=== PATIENT | male | born 1980 | race Caucasian/White ===

== ENCOUNTER 2017-06-27 11:20 | Emergency (ER) | payer MEDICARE, OTHER, MEDICAID ==
[~2017-06-27] VITALS: Ht 188 cm; Wt 95.3 kg
[~2017-06-27 11:20] MED LIST: ACID1TAB21 PO; AMO875 PO; AMOX-559 PO; AMOX500T10 PO; ARI10 PO; AZIT500T47 PO; CEFD300C35 PO; CLIN40GE2 TP; CLOB10TA PO; CLOZ100 FT; CLOZ100 PO; DIVA500T97 PO; GAB800PT PO; GABA-551 PO; HYDR453.8 TP; HYOS0.37 PO; IMIP10TA17 PO; LEVE500 PO; LEVO-3 PO; LEVO88TA45 PO; LITHOBID PO; LORA-629 PO; MIR; MOM PO; OLAN20TA17 PO; OLAN20TA18 PO; OSE75 PO; OXCA300T42 PO; POLY17PO25 PO; PRED-1 PO; [UNRECOGNIZED DRUG - CODE] PO
--- NOTE | 2017-06-27 11:22 | ER Report ---
History and Physical Time Seen By MD: 11:22 HPI/ROS CHIEF COMPLAINT: Right leg pain HISTORY OF PRESENT ILLNESS: Patient is a 37-year-old male who is a history of developmental delay epilepsy and anxiety disorder who is brought to the emergency department for evaluation of atraumatic right leg pain. The symptoms as best I can understand began last evening. Glaze Wiper normally states the patient ambulates without difficulty but is now having significant discomfort and not bearing weight. No history of fever no new rashes. Again no history of traumatic injury. REVIEW OF SYSTEMS: Respiratory: No cough, no dyspnea. Cardiovascular: No chest pain, no palpitations. Gastrointestinal: No vomiting, no abdominal pain. Musculoskeletal: No back pain. Right upper leg pain Allergies: Coded Allergies: No Known Drug Allergies (Verified , 02/28/16) Home Meds Active Scripts Ibuprofen (IBUPROFEN) 600 Mg Tablet, 1 TAB PO Q8H for PAIN, #30 TAB 0 Refills Prov:TONIO MEJIA MD 06/27/17 Oxcarbazepine (OXCARBAZEPINE) 300 Mg Tablet, 450 MG PO DAILY@20, #45 TAB 1 Refill Prov:JULIO LANDIN MD 08/03/15 Oxcarbazepine (OXCARBAZEPINE) 300 Mg Tablet, 600 MG PO DAILY@08, #60 TAB 1 Refill Prov:JULIO LANDIN MD 08/03/15 Levothyroxine Sodium (LEVOTHYROXINE SODIUM) 100 Mcg Tablet, 0.1 MG PO QDAY@06, # 30 TAB 1 Refill Prov:JULIO LANDIN MD 08/03/15 Reported Medications Fluticasone Prop 50 Mcg Ns (FLONASE 50 MCG NS) 16 Gm [place].susp, 1 SPRAY NS BID , BOT 06/27/17 Clozapine (CLOZAPINE) 100 Mg Tab, 100 MG FT, TAB 11/30/16 Acidoph/L.bulg/Bif.b/S.thermop (HENRI-BID CAPLET) 1 Each Tablet, 1 EACH PO 11/30/16 Hydrocortisone 2.5% Oint (HYDROCORTISONE 2.5% OINT) 453.6 Gm Oint...g., 453.6 GM TP, TUBE 11/30/16 Clozapine (CLOZAPINE) 100 Mg Tab, 100 MG FT TID, TAB 11/30/16 Clobazam (ONFI) 10 Mg Tablet, 10 MG PO QDAY 04/16/15 Clindamycin Phosphate (CLINDAGEL) 40 Ml Gel..ml., 1 APURVA TP QDAY 04/16/15 Polyethylene Glycol 3350 (MIRALAX) 17 Gm Powd.pack, 17 GM PO TUES & THURS 04/16/15 Loratadine (LORATADINE) 10 Mg Tablet, 10 MG PO BID 04/16/15 Gabapentin (GABAPENTIN) 400 Mg Capsule, 400 MG PO QID, CAPSULE 04/16/15 Aripiprazole (Abilify) 10 Mg Tab, 10 MG PO QDAY, 0 Refills 08/28/09 Divalproex Sodium (Depakote) 500 Mg Tablet.dr, 500 MG PO BID, 0 Refills 2 TABS AT 8AM, 6PM, 1 TAB AT 12NOON 08/28/09 Discontinued Reported Medications Olanzapine (ZYPREXA) 20 Mg Tablet, 20 MG PO PRN 11/30/16 Imipramine Hcl (IMIPRAMINE HCL) 10 Mg Tablet, 10 MG PO QDAY 04/16/15 Discontinued Scripts Amoxicillin 500 Mg Tab (AMOXICILLIN 500 MG TAB) 500 Mg Tablet, 2 TAB PO Q12H for 10 Days, #20 TAB TAKE TWO TABLETS BY MOUTH EVERY 12 HOURS Prov:ANUEL SANDRA MD 11/30/16 Past Medical/Surgical History Past medical history for diabetes insipidus, history of pervasive development disorder, history of autism and anxiety history of seizure disorder, thad- gastaut syndrome. Hx Smoking: No Smoking Status: Never Smoker Hx Substance Use Disorder: No Hx Alcohol Use: No Constitutional Vital Sign - Last 24 Hours 06/27/17 06/27/17 06/27/17 06/27/17 11:20 11:26 11:29 11:45 Temp 98.9 Pulse ??? 110 Resp 18 B/P (MAP) 133/92 133/92 (106) ???/??? (1665) Pulse Ox 93 O2 Delivery Room Air 06/27/17 06/27/17 06/27/17 06/27/17 11:50 12:00 12:05 12:15 Pulse ??? 101 B/P (MAP) 172/164 (167) 144/89 (107) Pulse Ox 90 06/27/17 06/27/17 06/27/17 06/27/17 12:20 12:30 12:35 12:50 Pulse 98 97 102 B/P (MAP) 122/104 (110) 97/56 (70) Pulse Ox 88 91 91 06/27/17 06/27/17 06/27/17 06/27/17 13:00 13:05 13:15 13:20 Pulse 98 95 B/P (MAP) 144/88 (106) 126/82 (97) Pulse Ox 92 89 06/27/17 06/27/17 06/27/17 06/27/17 13:30 13:35 13:45 13:50 Pulse 94 ??? B/P (MAP) 126/87 (100) 111/89 (96) Pulse Ox 88 90 Physical Exam General Appearance: The patient is alert, has no immediate need for airway protection and no current signs of toxicity. Eyes: Pupils equal and round no injection. Respiratory: Chest is non tender, lungs are clear to auscultation. Cardiac: regular rate and rhythm [ ] Gastrointestinal: Abdomen is soft and non tender, no masses, bowel sounds normal. Musculoskeletal: Neck: Neck is supple and non tender. Extremities patient with normal appearance of the right lower extremity. Pain seems to be in the right hip . There is no overlying erythema or rash to suggest either infection or herpes zoster. Skin: No rashes or lesions. Medical Decision Making EKG/Imaging Imaging FACILITY: [facility] PATIENT NAME: Jose Gonzalez : 1980 MR: [id number] V: [id number] EXAM DATE: ORDERING PHYSICIAN: TONIO MEJIA TECHNOLOGIST: Location: [facility] Patient: Jose Gonzalez : 1980 Visit/Account:[id number] Date of Sevice: 06/27/2017 FEMUR RIGHT Indication: Pain. Comparison: None available Findings: 2 views on 4 images of the right femur demonstrate no acute fracture or dislocation. At the hip joint, there is decreased offset at the femoral head and neck junction. This finding has been described with the cam-type of femoral acetabular impingement. Correlate clinically. Hip joint space and knee joint space are maintained. IMPRESSION: 1. No acute fracture or acute osseous abnormality of the right femur. 2. Decreased offset at the right femur femoral head and neck junction which has been described with the cam-type of femoral acetabular impingement. Correlate clinically. Report Dictated By: Alan Gonsalez at 06/27/2017 12:29 PM Report E-Signed By: Alan Gonsalez at 06/27/2017 12:33 PM WSN:[id number] ED Course/Re-evaluation ED Course 06/27/2017 11:41:36 am plan at this time will be to perform x-ray of the hip and femur Decision to Disposition Date: Jun 27, 2017 Decision to Disposition Time: 13:41 Depart Departure Latest Vital Signs Vital Signs Date Time Temp Pulse Resp B/P (MAP) Pulse Ox O2 Delivery O2 Flow Rate FiO2 06/27/17 13:50 ??? 90 06/27/17 13:45 111/89 (96) 06/27/17 11:26 98.9 18 Room Air Impression: Primary Impression: Hip pain Condition: Improved Disposition: HOME OR SELF-CARE Referrals: GRAHAM HANNA DO (PCP) 2 Weeks New Scripts Ibuprofen (IBUPROFEN) 600 Mg Tablet 1 TAB PO Q8H for PAIN, #30 TAB 0 Refills Prov: TONIO MEJIA MD 06/27/17 Patient Instructions: Hip Pain (ED) Additional Instructions: Return to the emergency department with urine sample bring to the outpatient lab along with prescription Problem Qualifiers Primary Impression: Hip pain Laterality: right Qualified Codes: M25.551 - Pain in right hip TONIO MEJIA MD Jun 27, 2017 11:22
[2017-06-27] MEDS ORDERED: FLUT16SP19 NS (11:48)
--- NOTE | 2017-06-27 12:37 | RADIOLOGY IMAGING REPORT ---
FACILITY: [facility] PATIENT NAME: Jose Gonzalez : 1980 MR: [id number] V: [id number] EXAM DATE: ORDERING PHYSICIAN: TONIO MEJIA TECHNOLOGIST: Location: [facility] [place] Patient: Jose Gonzalez : 1980 Visit/Account:[id number] Date of Sevice: 06/27/2017 FEMUR RIGHT Indication: Pain. Comparison: None available Findings: 2 views on 4 images of the right femur demonstrate no acute fracture or dislocation. At the hip joint , there is decreased offset at the femoral head and neck junction. This finding has been described wi th the cam-type of femoral acetabular impingement. Correlate clinically. Hip joint space and knee ale nt space are maintained. IMPRESSION: 1. No acute fracture or acute osseous abnormality of the right femur. 2. Decreased offset at the right femur femoral head and neck junction which has been described with t he cam-type of femoral acetabular impingement. Correlate clinically. Report Dictated By: Alan Gonsalez at 06/27/2017 12:29 PM Report E-Signed By: Alan Gonsalez at 06/27/2017 12:33 PM WSN:[id number]
--- NOTE | 2017-06-27 13:05 | RADIOLOGY IMAGING REPORT ---
FACILITY: [facility] [place] PATIENT NAME: Jose Gonzalez : 1980 MR: [id number] V: [id number] EXAM DATE: ORDERING PHYSICIAN: TONIO MEJIA TECHNOLOGIST: Location: [facility] Patient: Jose Gonzalez : 1980 Visit/Account:[id number] Date of Sevice: 06/27/2017 EXAMINATION: Right LOWER EXTREMITY VENOUS DOPPLER ULTRASOUND DATE: 06/27/2017 12:59 PM CLINICAL INFORMATION: Evaluate for DVT. REASON FOR STUDY: pain TECHNIQUE: Grayscale, color Doppler, and spectral Doppler ultrasound was performed of the lower extre mity veins to evaluate for deep venous thrombosis. COMPARISON: None FINDINGS: The right common femoral, femoral, and popliteal veins are compressible with normal flow on color Dop pler imaging. There is also normal Doppler flow of the profunda femoris and greater saphenous veins a t the confluence with the common femoral vein. The right posterior tibial and peroneal veins demonstrate normal flow IMPRESSION: No evidence of deep venous thrombosis in the right lower extremity veins. Report Dictated By: Peewee Vicente MD at 06/27/2017 12:59 PM Report E-Signed By: Peewee Vicente MD at 06/27/2017 1:00 PM WSN:[id number]
[2017-06-27 13:45] VITALS: BP 111/89
[2017-06-27] MEDS ORDERED: IBUP600T22 PO (13:46)
== END 2017-06-27 13:59 | disposition home or self-care (01) ==
LOC: ER 11:32
DX: M25.551 Pain in right hip (principal)
CPT/HCPCS: 99283

== ENCOUNTER → 2017-06-29 | Outpatient (REF) | payer MEDICARE, OTHER, MEDICAID ==
[~2017-06-29] MED LIST changes: +FLUT16SP19 NS; +IBUP600T22 PO
== END ==
LOC: ZZSENDIN 14:26 → EDSTATUS 14:28 → ZZSENDIN 14:29
PROVIDERS: ATTEND Emergency Medicine
DX: R30.0 Dysuria (principal)
CPT/HCPCS: 81001; 87088

== ENCOUNTER 2017-12-06 19:09 | Emergency (ER) | payer MEDICARE, OTHER, MEDICAID ==
[~2017-12-06 19:09] MED LIST changes: -ACET-2146 PO; -ASPI-764 PO; -BACOUD TP; -CALC1TAB24 PO; -CEPH500T7 PO; +CLOZ100 FT; -HYDR-4309 PO; -LEVO50TA86 PO; -LOPE-84 PO; -OLAN20TA20 PO; -OXYC1TAB PO
--- NOTE | 2017-12-06 19:12 | ER Report ---
History and Physical Time Seen By MD: 19:08 HPI/ROS CHIEF COMPLAINT: Seizure, left ankle deformity HISTORY OF PRESENT ILLNESS: 37-year-old male arc patient with a known history of seizures. Patient has had multiple mild focal seizures today. During the last one he was helped to the ground with a staff member. Unfortunately, there was a twisting motion to his left ankle. Now is obviously deformed and painful. EMS placed him in a sample splint with Kerlex. The left lower extremity is neurovascularly intact. Patient received Zofran 8 mg in route and fentanyl 100 g IV.Past medical history for diabetes insipidus, history of pervasive development disorder, history of autism and anxiety history of seizure disorder, thad-gastaut syndrome. REVIEW OF SYSTEMS: Respiratory: No cough, no dyspnea. Cardiovascular: No chest pain, no palpitations. Gastrointestinal: No vomiting, no abdominal pain. Musculoskeletal: As above Allergies: Coded Allergies: No Known Drug Allergies (Verified , 12/06/17) Home Meds Active Scripts Hydrocodone Bit/Acetaminophen (NORCO 5-325 TABLET) 1 Each Tablet, 1-2 EACH PO Q4H Y for PAIN, #20 TAB Prov:DEB BURRELL DO 12/06/17 Ibuprofen (IBUPROFEN) 600 Mg Tablet, 1 TAB PO Q8H for PAIN, #30 TAB 0 Refills Prov:TONIO MEJIA MD 06/27/17 Oxcarbazepine (OXCARBAZEPINE) 300 Mg Tablet, 450 MG PO DAILY@20, #45 TAB 1 Refill Prov:JULIO LANDIN MD 08/03/15 Oxcarbazepine (OXCARBAZEPINE) 300 Mg Tablet, 600 MG PO DAILY@08, #60 TAB 1 Refill Prov:JULIO LANDIN MD 08/03/15 Levothyroxine Sodium (LEVOTHYROXINE SODIUM) 100 Mcg Tablet, 0.1 MG PO QDAY@06, # 30 TAB 1 Refill Prov:JULIO LANDIN MD 08/03/15 Reported Medications Fluticasone Prop 50 Mcg Ns (FLONASE 50 MCG NS) 16 Gm [place].susp, 1 SPRAY NS BID , BOT 06/27/17 Clozapine (CLOZAPINE) 100 Mg Tab, 100 MG FT, TAB 11/30/16 Acidoph/L.bulg/Bif.b/S.thermop (HENRI-BID CAPLET) 1 Each Tablet, 1 EACH PO 11/30/16 Hydrocortisone 2.5% Oint (HYDROCORTISONE 2.5% OINT) 453.6 Gm Oint...g., 453.6 GM TP, TUBE 11/30/16 Clozapine (CLOZAPINE) 100 Mg Tab, 100 MG FT TID, TAB 11/30/16 Clobazam (ONFI) 10 Mg Tablet, 10 MG PO QDAY 04/16/15 Clindamycin Phosphate (CLINDAGEL) 40 Ml Gel..ml., 1 APURVA TP QDAY 04/16/15 Polyethylene Glycol 3350 (MIRALAX) 17 Gm Powd.pack, 17 GM PO TUES & THURS 04/16/15 Loratadine (LORATADINE) 10 Mg Tablet, 10 MG PO BID 04/16/15 Gabapentin (GABAPENTIN) 400 Mg Capsule, 400 MG PO QID, CAPSULE 04/16/15 Aripiprazole (Abilify) 10 Mg Tab, 10 MG PO QDAY, 0 Refills 08/28/09 Divalproex Sodium (Depakote) 500 Mg Tablet.dr, 500 MG PO BID, 0 Refills 2 TABS AT 8AM, 6PM, 1 TAB AT 12NOON 08/28/09 Past Medical/Surgical History Past medical history for diabetes insipidus, history of pervasive development disorder, history of autism and anxiety history of seizure disorder, thad- gastaut syndrome. Reviewed Nurses Notes: Yes Old Medical Records Reviewed: Yes Hx Smoking: No Smoking Status: Never Smoker Hx Substance Use Disorder: No Hx Alcohol Use: No Constitutional Vital Sign - Last 24 Hours 12/06/17 12/06/17 12/06/17 12/06/17 19:10 19:10 19:15 19:24 Temp 98.5 Pulse 98 97 Resp 16 B/P (MAP) 140/90 (107) 140/90 130/91 (104) Pulse Ox 94 99 O2 Delivery Room Air 12/06/17 12/06/17 12/06/17 12/06/17 19:30 19:39 19:45 19:54 Pulse ??? 88 B/P (MAP) 124/84 (97) 119/74 (89) Pulse Ox 96 97 12/06/17 12/06/17 12/06/17 12/06/17 20:00 20:09 20:15 20:24 Pulse 87 85 B/P (MAP) 112/68 (83) 115/73 (87) Pulse Ox 97 98 12/06/17 12/06/17 12/06/17 12/06/17 20:29 20:30 20:44 20:45 Pulse 83 86 B/P (MAP) 104/67 (79) 106/71 (83) Pulse Ox 98 98 12/06/17 20:59 Pulse ??? Physical Exam Vital signs stable, afebrile, pulse ox normal General Appearance: The patient is alert, has no immediate need for airway protection and no current signs of toxicity. Appearance of developmental delay. , No signs of head trauma Eyes: Pupils equal and round no injection. Oropharynx: No tongue biting fry Respiratory: Chest is non tender, lungs are clear to auscultation. No chest wall tenderness Cardiac: regular rate and rhythm Gastrointestinal: Abdomen is soft and non tender, no masses, bowel sounds normal. Musculoskeletal: Neck: Neck is supple and non tender. Extremities have full range of motion and are non tender. Examination of the left lower extremity reveals external rotation of the ankle joint. Appearance is suggestive of a bimalleolar fracture. The foot is neurovascularly intact. Skin: No rashes or lesions. DIFFERENTIAL DIAGNOSIS: After history and physical exam differential diagnosis was considered for a seizure including but not limited to electrolyte abnormality, alcohol withdrawal, medication noncompliance, head injury, and breakthrough seizure. Additionally, sprain, strain, fracture, dislocation, contusion. Medical Decision Making EKG/Imaging Imaging X-ray: Three-view left ankle was obtained. I viewed the images myself on the PACS system. My interpretation of the images is: Obvious bimalleolar fracture with dislocation of the talus.. The radiologist interpretation had no clinically significant variation from this interpretation. X-ray: Two-view left ankle, status post reduction was obtained. I viewed the images myself on the PACS system. My interpretation of the images is: There are good alignment of the fragments.. The radiologist interpretation had no clinically significant variation from this interpretation. ED Course/Re-evaluation ED Course Patient was admitted to an examination room. H&P was done. The differential diagnoses was considered. Patient with obvious deformity and external rotation of his left ankle. On arrival. The left foot is noted to be neurovascularly intact. Diagnostic x-rays are performed showing a bimalleolar fracture. Patient's given Versed 2 mg on top of the fentanyl 100 g administered by EMS prior to arrival. Patient's in a somnolent state with a stable, pulse ox on supplemental O2. His ankle is reduced to normal alignment. A posterior and stirrup splint were applied. His neurovascular function was notably intact post splinting. Patient discharged home after observation of one hour. With a prescription for [place] for pain relief. He's in the care of our staff members. They have a wheel chair for him to use for mobility. Patient may not be able to function with crutches. 12/06/2017 7:51:09 pm Procedure: Dislocation reduction. The left ankle dislocation, bimalleolar fracture was reduced in the usual fashion without complications. Post reduction the patient's neurovascular exam is normal. Post reduction x-ray demonstrates reduction of the joint to the anatomic position. Patient was placed in a posterior and stirrup splint to maintain proper anatomic alignment The procedure was performed by myself. Decision to Disposition Date: Dec 06, 2017 Decision to Disposition Time: 19:35 Depart Departure Latest Vital Signs Vital Signs Date Time Temp Pulse Resp B/P (MAP) Pulse Ox O2 Delivery O2 Flow Rate FiO2 12/06/17 20:59 ??? 12/06/17 20:45 106/71 (83) 12/06/17 20:44 98 12/06/17 19:10 98.5 16 Room Air Impression: Primary Impression: Bimalleolar fracture of left ankle Additional Impressions: Dislocation of ankle, left, closed Seizure disorder Condition: Improved Disposition: HOME OR SELF-CARE Referrals: GRAHAM HANNA DO (PCP) ANGIE TAVERAS MD New Scripts Hydrocodone Bit/Acetaminophen (NORCO 5-325 TABLET) 1 Each Tablet 1-2 EACH PO Q4H Y for PAIN, #20 TAB Prov: DEB BURRELL DO 12/06/17 Patient Instructions: Ankle Fracture (ED) Additional Instructions: Keep ankle elevated and apply ice Do not remove splint Patient is not to put any weight on his left lower extremity Call for an appointment at [facility] for follow-up within 3 days. The patient will likely need surgery to repair his ankle. Dr. Taveras information is provided Problem Qualifiers Primary Impression: Bimalleolar fracture of left ankle Encounter type: initial encounter Fracture type: closed Qualified Codes: S82.842A - Displaced bimalleolar fracture of left lower leg, initial encounter for closed fracture Additional Impressions: Dislocation of ankle, left, closed Encounter type: initial encounter Qualified Codes: S93.05XA - Dislocation of left ankle joint, initial encounter DEB BURRELL DO Dec 06, 2017 19:12
[2017-12-06] MEDS ORDERED: MIDAZOLAM 2 MG/2 ML VIAL IVP ONE (19:35)
[2017-12-06] MEDS ORDERED: HYDR-4309 PO (19:53)
--- NOTE | 2017-12-06 20:25 | RADIOLOGY IMAGING REPORT ---
FACILITY: [facility] PATIENT NAME: Jose Gonzalez : 1980 MR: [id number] V: [id number] EXAM DATE: ORDERING PHYSICIAN: DEB BURRELL TECHNOLOGIST: Location: [facility] [place] Patient: Jose Gonzalez : 1980 Visit/Account:[id number] Date of Sevice: 12/06/2017 INDICATION: deformed ? FX, Had Sz EXAM DATE: 12/06/2017 7:10 PM COMPARISON: None. FINDINGS: 3 views left ankle. Mineralization is normal. There are displaced bimalleolar fractures. There is a pproximately 9 mm of diastases of the medial malleolar fracture and 10 mm of lateral displacement at the lateral malleoli fracture. The talus is laterally subluxed. Prominent soft tissue swelling. IMPRESSION: Displaced bimalleolar fractures of the left ankle with talar subluxation. Report Dictated By: Yonas Dela Cruz MD at 12/06/2017 8:19 PM Report E-Signed By: Yonas Dela Cruz MD at 12/06/2017 8:21 PM WSN:[id number]
[2017-12-06 20:45] VITALS: BP 106/71
[2017-12-06] MEDS ORDERED: ACET/HYDROC 5/325MG TH ER ONLY 2 TAB/BOTTLE PO ONE (21:00)
--- NOTE | 2017-12-06 21:07 | RADIOLOGY IMAGING REPORT ---
FACILITY: [facility] [place] PATIENT NAME: Jose Gonzalez : 1980 MR: [id number] V: [id number] EXAM DATE: ORDERING PHYSICIAN: DEB BURRELL TECHNOLOGIST: Location: [facility] [place] Patient: Jose Gonzalez : 1980 Visit/Account:[id number] Date of Sevice: 12/06/2017 EXAMINATION: Left ankle 2 views HISTORY: Post reduction. COMPARISON: Prior study of earlier today. FINDINGS: There has been reduction of the prior lateral left ankle dislocation, with improved anatomic alignmen t. Again noted are fractures of the medial and lateral malleoli, with persistent mild displacement of the lateral malleolus fracture. No other new osseous findings. Soft tissue swelling surrounds the left ankle, with new surrounding splint material. IMPRESSION: 1. Reduction of the prior lateral ankle dislocation, with improved anatomic alignment. 2. Fractures of the medial and lateral malleoli are again noted. Report Dictated By: Addy Lundy MD at 12/06/2017 9:02 PM Report E-Signed By: Addy Lundy MD at 12/06/2017 9:04 PM WSN:[id number]
== END 2017-12-06 21:01 | disposition home or self-care (01) ==
LOC: ER 19:17
DX: S82.842A Displaced bimalleolar fracture of left lower leg, initial encounter for closed fracture (principal); S93.05XA Dislocation of left ankle joint, initial encounter; G40.909 Epilepsy, unspecified, not intractable, without status epilepticus
CPT/HCPCS: 27810; 73600; 73610; 96374; 99284; J2250

== ENCOUNTER → 2017-12-06 | Outpatient (CLI) | payer MEDICARE, OTHER, MEDICAID ==
[~2017-12-06] MED LIST changes: +ACET-2146 PO; +ASPI-764 PO; +BACOUD TP; +CALC1TAB24 PO; +CEPH500T7 PO; -CLOZ100 FT; +HYDR-4309 PO; +LEVO50TA86 PO; +LOPE-84 PO; +OLAN20TA20 PO; +OXYC1TAB PO
== END ==
LOC: AMB 18:39
PROVIDERS: ATTEND Nurse Practitioner
DX: M25.572 Pain in left ankle and joints of left foot (principal); R56.9 Unspecified convulsions; W18.30XA Fall on same level, unspecified, initial encounter; Q90.9 Down syndrome, unspecified
CPT/HCPCS: A0425; A0433

== ENCOUNTER 2017-12-13 00:17 | Observation (INO) | payer MEDICARE, OTHER, MEDICAID ==
[~2017-12-13] VITALS: Ht 185.4 cm; Wt 98.9 kg
[2017-12-13] VITALS (13 sets, daily range): BP systolic 103–138; BP diastolic 65–117
[~2017-12-13 00:17] MED LIST changes: +ACET-2146 PO; +BACOUD TP; +CALC1TAB24 PO; -CLOZ100 FT; +HYDR-4309 PO; +LEVO50TA86 PO; +LOPE-84 PO; +OLAN20TA20 PO
[2017-12-13] MEDS ORDERED: fentaNYL CITR 100 MCG/2 ML AMP ONE ×2 (08:54→11:42)
[2017-12-13] MEDS ORDERED: ONDANSETRON 4 MG/2 ML VIAL ONE (08:55)
[2017-12-13] MEDS ORDERED: DEXAMETHASONE SOD PHOS 10MG/ML ONE (08:55)
[2017-12-13] MEDS ORDERED: LIDOCAINE MPF 1% 5 ML VIAL ONE (08:55)
[2017-12-13] MEDS ORDERED: PROPOFOL EMUL(*) 10MG/ML 20 ML 20 ML ONE (08:55)
[2017-12-13] MEDS ORDERED: MIDAZOLAM 2 MG/2 ML VIAL ONE (08:56)
[2017-12-13] MEDS ORDERED: ceFAZolin(*) 2GM/D5W 50ML 50 ML IVPB ONE (09:00)
[2017-12-13] MEDS ORDERED: MIDAZOLAM 2 MG/2 ML VIAL IVP PRN (09:00)
[2017-12-13] MEDS ORDERED: LIDOCAINE/SOD BICARB 8.4% SYR ID ONE (09:00)
[2017-12-13] MEDS ORDERED: NORMOSOL R SOLN(*) 1000 ML BAG 1,000 ML IV PRN (09:00)
[2017-12-13] MEDS ORDERED: FAMOTIDINE 20 MG TAB PO ONE (09:00)
[2017-12-13] MEDS ORDERED: CELECOXIB 200 MG CAP PO ONE (09:00)
[2017-12-13] MEDS ORDERED: ROPIVACAINE 0.2% 20 ML VIAL ONE ×2 (10:02→12:09)
[2017-12-13] MEDS ORDERED: DEXMEDETOMIDINE HCL 200 MCG/2 ML IV ONE (10:30)
[2017-12-13] MEDS ORDERED: KETOROLAC 30 MG/ML VIAL ONE (10:58)
[2017-12-13] MEDS ORDERED: KETAMINE HCL 200 MG/20 ML MDV ONE (10:58)
[2017-12-13] MEDS ORDERED: ACETAMINOPHEN(*)1000 MG/100 ML 100 ML IVPB ONE (12:44)
[2017-12-13] MEDS ORDERED: FLUSH 10 ML SYR IVP PRN (12:55)
[2017-12-13] MEDS ORDERED: ONDANSETRON 4 MG/2 ML VIAL IVP PRN (12:55)
[2017-12-13] MEDS ORDERED: MORPHINE 2 MG/ML SYR IVP PRN (12:55)
[2017-12-13] MEDS ORDERED: PROMETHAZINE 25 MG/ML 1 ML AMP IVP PRN (12:55)
[2017-12-13] MEDS ORDERED: KETOROLAC TROM 10MG TAB PO PRN (13:05)
[2017-12-13] MEDS ORDERED: LABETALOL HCL 100 MG/20ML VIAL ONE (14:41)
--- NOTE | 2017-12-13 16:27 | Hospitalist Consultation ---
History of Present Illness Requesting Physician Dr. Santos Reason for Consult Medical Management Chief Complaint s/p ankle ORIF History of Present Illness He was admitted s/p ankle ORIF. It is reported the surgery went well and without complication. History Problems: (1) Johnathan-Gastaut syndrome Status: Chronic (2) Pervasive developmental disorder Status: Chronic Home Meds Active Scripts Hydrocodone Bit/Acetaminophen (NORCO 5-325 TABLET) 1 Each Tablet, 1-2 EACH PO Q4H Y for PAIN, #20 TAB Prov:DEB BURRELL DO 12/06/17 Ibuprofen (IBUPROFEN) 600 Mg Tablet, 1 TAB PO Q8H for PAIN, #30 TAB 0 Refills Prov:TONIO MEJIA MD 06/27/17 Oxcarbazepine (OXCARBAZEPINE) 300 Mg Tablet, 450 MG PO DAILY@20, #45 TAB 1 Refill Prov:JULIO LANDIN MD 08/03/15 Oxcarbazepine (OXCARBAZEPINE) 300 Mg Tablet, 600 MG PO DAILY@08, #60 TAB 1 Refill Prov:JULIO LANDIN MD 08/03/15 Reported Medications Olanzapine (ZYPREXA ZYDIS) 20 Mg Tab.rapdis, 20 MG PO QDAY Y for AGITATION 12/10/17 Levothyroxine Sodium (LEVOTHYROXINE SODIUM) 50 Mcg Tablet, 50 MCG PO QDAY, TAB 12/10/17 Bacitracin (BACITRACIN ZINC) 0.9 Gm Oint, 0.9 GM TP PRN 12/10/17 Loperamide Hcl (ANTI-DIARRHEAL) 2 Mg Capsule, 2 MG PO PRN Y for DIARRHEA, CAPSULE 12/10/17 Calcium Carbonate/Mag Hydrox (ANTACID CHEWABLE TABLET) 1 Each Tab.chew, 1 EACH PO Y for HEARTBURN, TAB.CHEW 12/10/17 Acetaminophen 500 Mg Tab (ACETAMINOPHEN EXTRA STRENGTH) 500 Mg Tablet, 2 TAB PO Q4-6H Y for PAIN, TAB 12/10/17 Fluticasone Prop 50 Mcg Ns (FLONASE 50 MCG NS) 16 Gm [place].susp, 1 SPRAY NS BID , BOT 06/27/17 Clozapine (CLOZAPINE) 100 Mg Tab, 100 MG PO NOON, TAB 11/30/16 Acidoph/L.bulg/Bif.b/S.thermop (HENRI-BID CAPLET) 1 Each Tablet, 1 EACH PO 11/30/16 Hydrocortisone 2.5% Oint (HYDROCORTISONE 2.5% OINT) 453.6 Gm Oint...g., 453.6 GM TP, TUBE 11/30/16 Clozapine (CLOZAPINE) 100 Mg Tab, 200 MG PO QAM, TAB 11/30/16 Clindamycin Phosphate (CLINDAGEL) 40 Ml Gel..ml., 1 APURVA TP QDAY 04/16/15 Polyethylene Glycol 3350 (MIRALAX) 17 Gm Powd.pack, 17 GM PO TUES & THURS 04/16/15 Loratadine (LORATADINE) 10 Mg Tablet, 10 MG PO BID 04/16/15 Gabapentin (GABAPENTIN) 400 Mg Capsule, 400 MG PO QID, CAPSULE 04/16/15 Aripiprazole (Abilify) 10 Mg Tab, 7.5 MG PO HS, 0 Refills 08/28/09 Divalproex Sodium (Depakote) 500 Mg Tablet.dr, 500 MG PO BID, 0 Refills 2 TABS AT 8AM, 6PM, 1 TAB AT 12NOON 08/28/09 Discontinued Reported Medications Clobazam (ONFI) 10 Mg Tablet, 10 MG PO QDAY 04/16/15 Discontinued Scripts Levothyroxine Sodium (LEVOTHYROXINE SODIUM) 100 Mcg Tablet, 0.1 MG PO QDAY@06, # 30 TAB 1 Refill Prov:JULIO LANDIN MD 08/03/15 Allergies: Coded Allergies: No Known Drug Allergies (Verified , 12/06/17) Patient History: Unobtainable due to patient's condition Hx Smoking: No Smoking Status: Never Smoker Hx Alcohol Use: No Hx Substance Use Disorder: No Review of Systems All Systems Reviewed/Normal: Yes, Except as Noted Exam Vital Signs Vital Signs Date Time Temp Pulse Resp B/P (MAP) Pulse Ox O2 Delivery O2 Flow Rate FiO2 12/13/17 15:30 89 16 94 12/13/17 08:13 98.0 111/98 (102) Room Air General Appearance: No Acute Distress Cardiovascular: Regular Rate and Rhythm Respiratory: No Respiratory Distress, Other (expiratory wheezes) Psych: Appropriate Mood & Affect Assessment and Plan Problems: (1) Status post ORIF of fracture of ankle Status: Acute Assessment & Plan: Followed by Dr. Santos. He will be placed on telemetry. He will be started on an Aspirin at this time. We will check with Dr. Santos if he would approve of Lovenox for DVT prophylaxis. (2) Johnathan-Gastaut syndrome Status: Chronic Assessment & Plan: He is on chronic treatment with Depakote and Gabapentin for seizures. (3) Pervasive developmental disorder Status: Chronic Assessment & Plan: He is on chronic treatment with Abilify, Oxcarbazepine, Clozapine. He does take Zyprexa as needed for agitation, but this has not been reordered for admission at this time. (4) Hypothyroidism Status: Chronic Assessment & Plan: He is on chronic treatment with Levothyroxine. Venous Thromboembolism Antithrombotics Is Pt On Any Antithrombotics?: No LUAN CHRISTOPHER [employer] Dec 13, 2017 16:27
[2017-12-13] MEDS ORDERED: NON-FORMULARY MEDICATION MISCELL (Gabapentin 400 MG) PO SCH (17:00)
[2017-12-13] MEDS: ceFAZolin(*) 2GM/D5W 50ML 50 ML IVPB SCH (17:46)
[2017-12-13] MEDS: GABAPENTIN(*) 300 MG CAP 300 MG, GABAPENTIN(*) 100 MG CAP 100 MG PO SCH ×2 (17:46→20:31)
[2017-12-13] MEDS: oxyCODONE HCL 5 MG CAP PO PRN ×3 (17:52→21:51)
[2017-12-13] MEDS ORDERED: NS(*) 0.9% 250 ML BAG 250 ML ONE (17:53)
[2017-12-13] MEDS ORDERED: OXcarbazepine 300 MG TAB PO SCH (20:00)
[2017-12-13] MEDS ORDERED: OXCARBAZEPINE 150 MG TABLET PO SCH (20:00)
[2017-12-13] MEDS: ACETAMINOPHEN 500 MG TAB PO SCH (20:31)
[2017-12-13] MEDS: DIVALPROEX SOD DR 500 MG TAB PO SCH (20:31)
[2017-12-13] MEDS: FLUTICASONE PROP 0.05% 16 GM SCH (20:38)
[2017-12-13] MEDS ORDERED: ARIPiprazole 10 MG TAB PO SCH (21:00)
[2017-12-14] MEDS: ceFAZolin(*) 2GM/D5W 50ML 50 ML IVPB SCH ×2 (00:49→09:42)
[2017-12-14 03:44] VITALS: BP 106/66
[2017-12-14] MEDS: ACETAMINOPHEN 500 MG TAB PO SCH ×2 (05:32→13:34)
[2017-12-14] MEDS ORDERED: LEVOTHYROXINE SOD 0.05 MG TAB PO SCH (06:00)
[2017-12-14] MEDS ORDERED: OXcarbazepine 300 MG TAB PO SCH (08:00)
[2017-12-14 08:05] VITALS: BP 117/69
[2017-12-14] MEDS ORDERED: CEPH500T7 PO (08:31)
[2017-12-14] MEDS ORDERED: OXYC1TAB PO (08:33)
[2017-12-14] MEDS: FLUTICASONE PROP 0.05% 16 GM SCH (09:00)
[2017-12-14] MEDS ORDERED: ASPIRIN 325 MG ENTERIC COATED PO SCH (09:00)
[2017-12-14] MEDS: GABAPENTIN(*) 300 MG CAP 300 MG, GABAPENTIN(*) 100 MG CAP 100 MG PO SCH ×2 (09:42→13:24)
[2017-12-14] MEDS: DIVALPROEX SOD DR 500 MG TAB PO SCH (09:43)
[2017-12-14] MEDS ORDERED: ASPI-764 PO (10:27)
--- NOTE | 2017-12-14 10:40 | Hospitalist Progress Note ---
Subjective Progress Notes Subjective He was admitted after ankle surgery. He had no acute events overnight. Patient Complains of: Cardiovascular: No: Chest Pain Respiratory: No: Shortness of Breath Physical Exam Vital Signs Date Time Temp Pulse Resp B/P (MAP) Pulse Ox O2 Delivery O2 Flow Rate FiO2 12/14/17 10:10 85 12/14/17 08:08 Nasal Cannula 1.0 12/14/17 08:05 98.0 92 16 117/69 (85) General Appearance: Alert, Awake, No Acute Distress Neuro: No Gross deficits Cardiovascular: Regular Rate and Rhythm Respiratory: No Respiratory Distress, Clear to Auscultation Psych: Alert & Oriented X3, Appropriate Mood & Affect Result Diagram: 12/14/17 0527 Assessment and Plan Problems: (1) Status post ORIF of fracture of ankle Status: Acute Assessment & Plan: Followed by Dr. Santos. He was placed on telemetry. He will be started on an Aspirin for 30 days for DVT prophylaxis. (2) Johnathan-Gastaut syndrome Status: Chronic Assessment & Plan: He is on chronic treatment with Depakote and Gabapentin for seizures. (3) Pervasive developmental disorder Status: Chronic Assessment & Plan: He is on chronic treatment with Abilify, Oxcarbazepine, Clozapine. He does take Zyprexa as needed for agitation, but this has not been reordered for admission at this time. (4) Hypothyroidism Status: Chronic Assessment & Plan: He is on chronic treatment with Levothyroxine. Exam Sepsis Risk: No Definite Risk [facility] Dec 14, 2017 10:40
[2017-12-14 11:06] VITALS: BP 125/82
[2017-12-14] MEDS ORDERED: CLOZAPINE 100 MG TABLET PO SCH ×2 (12:00→20:00)
[2017-12-14 12:07] VITALS: Ht 185.4 cm; Wt 98.9 kg
--- NOTE | 2017-12-14 16:19 | OPERATIVE REPORT 1 ---
EVENT DATE: December 13, 2017 SURGEON: Garcia Santos MD ANESTHESIOLOGIST: Sal Craft MD ANESTHESIA: General. ENVELOPE STUFFER: POLI Lan PREOPERATIVE DIAGNOSIS Left ankle trimalleolar fracture. POSTOPERATIVE DIAGNOSES 1. Left ankle trimalleolar fracture. 2. Disruption of anterior tibiofibular ligament. PROCEDURES PERFORMED 1. Left ankle open reduction, internal fixation of fibular fracture and medial malleolus fracture. 2. Repair of anteroinferior tibiofibular ligament 3. Closed reduction of the posterior malleolus fracture. IMPLANTS USED Synthes one-third tubular plate, seven-hole, with four fully-threaded bicortical screws, three fully-threaded cancellous screws, and two 4.0 mm partially-threaded angular screws, one 40 mm and one 50 mm. SPECIMENS None. COMPLICATIONS None. BLOOD LOSS Less than 5 mL. DESCRIPTION OF OPERATION Patient received appropriate preoperative antibiotic. He was brought to the OR where Dr. Craft performed general anesthesia. Right thigh tourniquet placed. Right lower extremity prepped and draped in the usual sterile fashion with scrub and paint. We made a straight lateral approach to the fibula. Sharp dissection was carried through the skin and subcutaneous tissue directly down to bone, care taken to protect the sural nerve posteriorly and the superficial peroneal nerve anteriorly. We dissected the fracture site utilizing sharp dissection as well as curettes and a Rojas elevator and irrigated the debris. We then with some difficulty performed a closed reduction, held it in place with a clamp. The plate was then placed underneath the clamp. We then placed one cancellous screw in the central hole of the three distal holes in standard AO fashion. We then placed our second screw in the central hole proximally, and this was a fully-threaded bicortical. We then filled the most distal hole with a cancellous screw and the most proximal of the distal three holes with a fully- threaded bicortical screw. The two remaining holes proximally were filled with bicortical screws. All were in the standard AO fashion. We then placed a screw obliquely across the fracture from anterior superior to posterior inferior. We could not do this any earlier because of the significant skin tissues and swelling in order to the screw. We needed to place some pressure on the soft tissues as well as the bone, and when we tried this earlier, it disrupted our fracture, but we were able to get this across. This fairly secured our fracture. We then visualized this directly as well as fluoroscopically, and we were satisfied with the reduction and placement of hardware. This was then copiously irrigated. Deep tissue was closed with 0 Vicryl in [id number] interrupted suture fashion, followed by 2-0 Vicryl for the subcutaneous tissues and ronnie for skin. We then took out the hip bump and approached the medial malleolus directly. Sharp dissection was carried down through the skin and subcutaneous tissues down to the bone. We were posterior to the greater saphenous nerve and vein. We easily identified the fracture. It was displaced inferiorly and anteriorly. We irrigated this copiously and removed debris. We noted areas that we could Rojas in nicely. We then reduced this down and held it in place with a clamp. We placed two 2.5 mm drill bits in parallel fashion and visualized this fluoroscopically. We then replaced the most posterior drill bit with a 40 mm, partially-threaded 4.0 mm screw with good purchase and reduction. As we placed the second screw, which initially was a 40 mm, we did not get a very good purchase, so we placed a 50 mm. At this point, we had good purchase and further supportive reduction. We copiously irrigated and visualized this fluoroscopically. We were satisfied with the placement and reduction. We then closed the periosteum with 0 Vicryl in [id number] suture fashion. We closed the subcutaneous tissues with 3-0 Vicryl, followed by ronnie for skin. It should be noted that prior to the wound closure after we fixed the fibula, I placed [id number] sutures in the anteroinferior tib-fib ligament to secure this and repair this. Visualizing fluoroscopically, we also noted that our posterior malleolus fracture had reduced satisfactorily. We then cleaned the wounds, applied 20 mL of ropivacaine in a wheal block fashion both medially and laterally. We placed the dressings, two 4-inch soft rolls, two 6-inch soft rolls, a foot plate, and a U splint with the foot in neutral position. The tourniquet was let down. The patient was extubated and taken to Recovery in stable condition. PLAN He will be admitted overnight for medical management and physical therapy. He will be nonweightbearing. HARI
== END 2017-12-14 11:58 | disposition home or self-care (01) ==
LOC: OR 00:17 → MED 15:30
PROVIDERS: ADMIT Orthopaedic Surgery; ATTEND Orthopaedic Surgery
DX: S82.855A Nondisplaced trimalleolar fracture of left lower leg, initial encounter for closed fracture (principal); S93.432A Sprain of tibiofibular ligament of left ankle, initial encounter
CPT/HCPCS: 27822; 36415; 85014; 85018; 97161; 97165; A9270; C1713; G0378; J0131; J1100; J1885; J2001; J2250; J2405; J2704; J2795; J3010; J3490; J0690

== ENCOUNTER → 2018-04-27 | Outpatient (REF) | payer MEDICARE, OTHER, MEDICAID ==
[2017-12-14 12:07] VITALS: BMI 28.8
[~2018-04-27] MED LIST changes: +ASPI-764 PO; +CEPH500T7 PO; -HYDR-4309 PO; +HYDR-653 PO; -OXCA300T42 PO; +OXCA300T59 PO; +OXYC1TAB PO
== END ==
LOC: ZZSENDIN 13:18
PROVIDERS: ATTEND Family Medicine
DX: R32 Unspecified urinary incontinence (principal)
CPT/HCPCS: 81001

== ENCOUNTER 2018-05-03 11:11 | Outpatient (RCR) | payer MEDICARE, OTHER, MEDICAID ==
[2017-12-14 12:07] VITALS: BMI 28.8
--- NOTE | 2018-02-14 13:33 | PT INITIAL EVALUATION ---
MEDICAL DIAGNOSIS: Left ankle ORIF TREATMENT DIAGNOSIS: Same DATE OF ONSET: 12/13/17 SUBJECTIVE: Jose Gonzalez presents to physical therapy status post Left Ankle ORIF on December 13, 2017. Jose presents to physical therapy with Mane who assists Jose at the [facility]. Mane reports that Jose had a seizure; however, his L foot became stuck in a door while falling down during the episode resulting in a broken L ankle that required surgery on the 13 of December. Mane reports that Jose is getting better each day and each week. Mane reports that Jose is walking well and they continue to perform daily exercises to improve strength in his legs while sitting down. Mane reports that Jose has not complained of pain in over a week with his L ankle. Mane reports that they use a shower chair in the shower to prevent falls. They report that everything is going well thus far. He denies any pain. REHAB PROBLEM LIST: Decreased ROM Decreased Strength Decreased Endurance Decreased Balance Decreased Function Decreased ADL's Decreased Mobility Decreased Gait PREVIOUS MEDICAL HISTORY: See chart and EMR OCCUPATION: Disabled OBJECTIVE: Posture: He demonstrated forward head, B rounded shoulder, increased thoracic kyphosis, and decreased lumbar lordosis. ROM: L ankle PROM: inversion: 15 deg, DF 0-5, PF: 30 deg, eversion: 30 deg. L ankle AROM: inversion: 5 deg, DF 0-8, PF: 30 deg, eversion: 25 deg. Strength: B hip flexion, abduction, adduction, B knee flexion and extension: 4+/5. R ankle DF and PF: 4+/5. L ankle DF, inversion, and eversion: 4-/5 with no pain. Palpation: He was no longer tender to palpation Sensation: L2-S1 intact Special Tests: Figure 8: 63 cm; no signs or symptoms of pitting edema Mobility: Independent Gait: Without AD, he demonstrated the following gait mechanics: normal base of support, decreased velocity, decreased R step length, decreased pelvic rotation, and no LOB's. Balance: Will test in the future ASSESSMENT: Jose will benefit from skilled physical therapy to address the listed impairments to return to prior level of function and to increase QOL. Short Term Goals 3 weeks: Pt will demonstrate significant improvements in PROM-AROM of L ankle into DF, inversion, and eversion to improve function and QOL. 6 weeks: Pt will demonstrate significant improvements in PROM-AROM of L ankle into DF, inversion, and eversion and motion will be equal to R ankle motions in all directions. 8 weeks: Pt will demonstrate a return to prior level with ambulation, strength, and return to full functional activities prior to the injury to improve function and QOL. Patient's Goals get out of boot PLAN: Patient to be seen for Manual Therapy/STM/MET Strengthening/condition Ice/Heat Range of Motion Spinal Stabilization Work Hardening/Cond Stretching Neuromuscular Re-ed Closed Chain Program Posture/Body mechanics Gait Trg/Balance Trg Home Exercise Program Therapeutic Activities 1-3x/week for 2 Months If you have any questions, comments, or concerns about this report or plan, please contact me at . Pino Izquierdo, PT, DPT MTDD
--- NOTE | 2018-05-04 08:37 | PT PLAN OF CARE ---
Physician: Garcia Santos MD Patient is being seen: 1-2x/week Therapist: Pino Izquierdo, PT, DPT Medical Diagnosis: Left ankle ORIF Treatment Diagnosis: Same Date of Onset: 12/13/17 Date of Initial Evaluation: 02/14/18 Date patient was last seen: 05/03/18 Number of treatments: 8 Number of cancellations/No shows: 2 INTERVENTIONS: Manual Therapy/STM/MET Strengthening/condition Ice/Heat Range of Motion Spinal Stabilization Work Hardening/Cond Stretching Neuromuscular Re-ed Closed Chain Program Posture/Body mechanics Gait Trg/Balance Trg Home Exercise Program Therapeutic Activities GOALS: 3 weeks: Pt will demonstrate significant improvements in PROM-AROM of L ankle into DF, inversion, and eversion to improve function and QOL. MET 6 weeks: Pt will demonstrate significant improvements in PROM-AROM of L ankle into DF, inversion, and eversion and motion will be equal to R ankle motions in all directions. MET 8 weeks: Pt will demonstrate a return to prior level with ambulation, strength, and return to full functional activities prior to the injury to improve function and QOL. MET PATIENT'S GOAL: get out of boot Status of Patient's Goals: MET Patient Compliance: Good Prognosis: Excellent Reasons for continuing therapy: This is a discharge note for Jose Gonzalez. He reports along with his aide reports that he is doing well and has returned to his prior level of function. They report that he has returned to his walking regime and does not have anymore pain. They report that they have been performing his home exercise program. He demonstrates equal L ankle AROM as compared to the R ankle AROM. He also demonstrates equal L ankle strength in all directions as compared to his R ankle strength in all directions. His gait mechanics has returned to prior level of function. He has met all of his goals. As a result, he will be discharged from PT to [facility]. Posture: He demonstrated forward head, B rounded shoulder, increased thoracic kyphosis, and decreased lumbar lordosis. ROM: L ankle motions in all directions are equal to his R ankle motions in all directions. Strength: B hip flexion, abduction, adduction, B knee flexion and extension: 5/5. R ankle DF and PF: 5/5. L ankle DF, inversion, and eversion: 5/5 with no pain. Palpation: He was no longer tender to palpation Special Tests: He no longer demonstrates any swelling or edema. Mobility: Independent If you have any questions, please contact me at [phone]. Thank you, Pino Izquierdo, PT, DPT ERICD
== END 2018-05-03 18:00 | disposition home or self-care (01) ==
LOC: PT 11:11
PROVIDERS: ATTEND Orthopaedic Surgery
DX: Z47.89 Encounter for other orthopedic aftercare (principal); M62.81 Muscle weakness (generalized)
CPT/HCPCS: 97161

== ENCOUNTER → 2018-09-03 | Outpatient (REF) | payer MEDICARE, OTHER, MEDICAID ==
[2017-12-14 12:07] VITALS: BMI 28.8
[2018-09-03 13:05] LABS: PLATELET COUNT, AUTOMATED 240 K/uL (150-450)
== END ==
PROVIDERS: ATTEND Nurse Practitioner Family
DX: G40.89 Other seizures (principal)
CPT/HCPCS: 82040; 82247; 82310; 82374; 82435; 82565; 82947; 84075; 84132; 84155; 84295; 84450; 84460; 84520; 85025

== ENCOUNTER → 2018-11-18 | Outpatient (REF) | payer MEDICARE, OTHER, MEDICAID ==
[2017-12-14 12:07] VITALS: BMI 28.8
[2018-11-18 11:53] LABS: PLATELET COUNT, AUTOMATED 222 K/uL (150-450)
== END ==
PROVIDERS: ATTEND Nurse Practitioner Family
DX: R06.02 Shortness of breath (principal); R53.83 Other fatigue
CPT/HCPCS: 82040; 82247; 82310; 82374; 82435; 82565; 82947; 83605; 84075; 84132; 84155; 84295; 84450; 84460; 84520; 85025

== ENCOUNTER → 2018-11-22 | Outpatient (REF) | payer MEDICARE, OTHER, MEDICAID ==
[2017-12-14 12:07] VITALS: BMI 28.8
[2018-11-22 15:17] LABS: PLATELET COUNT, AUTOMATED 239 K/uL (150-450)
== END ==
PROVIDERS: ATTEND Nurse Practitioner Family
DX: R53.83 Other fatigue (principal)
CPT/HCPCS: 82040; 82247; 82310; 82374; 82435; 82565; 82947; 84075; 84132; 84155; 84295; 84450; 84460; 84520; 85025